=== PATIENT | male | born 1980 | race Asian ===

== ENCOUNTER 2020-07-08 21:01 | Emergency (ER) | payer OTHER ==
--- NOTE | 2020-07-08 22:03 | ED Physician Documentation ---
PD HPI LOWER EXT INJURY - Stated complaint Stated Complaint: L LEG PX - Chief complaint Chief Complaint: Trauma Ext - History obtained from History obtained from: Patient - History of Present Illness PD HPI LOW EXT INJURY LOCATION: Left, Upper leg Where injury occurred: Park Timing - details: Abrupt onset Pain level now: 3 Improved by: Rest Worsened by: Moving, Palpating Associated symptoms: Swelling. No: Numbness Recently seen: Not recently seen - Additional information Additional information: one week ago, patient was running to catch a pop fly during a baseball game when he had sudden left posterior thigh pain with popping sensation. 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 The pain on both occasions caused him to fall to the ground, but the pain was present before he fell (he did not sustain injury due to falling) Review of Systems Musculoskeletal: reports: Extremity pain, Extremity swelling, Pain with weight bearing Neurologic: denies: Focal weakness, Numbness PD PAST MEDICAL HISTORY - Past Medical History Past Medical History: No - Past Surgical History Past Surgical History: No - Present Medications Home Medications: Ambulatory Orders Medication Instructions Recorded Confirmed HYDROcod/ACETAM 5/325 [[place] 5/325] 1 - 2 tablet PO Q6H PRN #14 tablet 07/08/20 - Allergies Allergies/Adverse Reactions: Allergies Allergy/AdvReac Type Severity Reaction Status Date / Time No Known Drug Allergies Allergy Verified 07/08/20 21:08 - Social History Does the pt smoke?: Yes Smoking Status: Former smoker Does the pt drink ETOH?: Yes Does the pt have substance abuse?: No - Immunizations Immunizations are current?: Yes - POLST Patient has POLST: No PD ED PE NORMAL - Vitals Vital signs reviewed: Yes - General General: Alert and oriented X 3, No acute distress, Well developed/nourished - Extremities Extremities: Normal ROM s pain (full extension and flexion of left hip and left knee without reproduction of symptoms, and he has 5/5 flexion/extension strength of left knee), No calf tenderness / cord - Neuro Neuro: No motor deficit, No sensory deficit PD ED PE EXPANDED - Extremities Extremities: Tenderness (left posterior thigh tender to palpation mid/proximal thigh, with fullness but not firm. there is an isolated echymosis left posterior distal thigh which appears several days old (brown/yellow discoloration)) Results - Vitals Vitals: Vital Signs - 24 hr 07/08/20 07/08/20 21:04 23:00 Temperature 36.0 C L 36.5 C Heart Rate 126 H 90 Respiratory 16 16 Rate Blood Pressure 153/134 H 130/80 O2 Saturation 97 98 Oxygen O2 Source Room air PD MEDICAL DECISION MAKING - ED course Complexity details: considered differential, d/w patient ED course: H+P s/o muscular strain. His intact ROM and strength of the left hip and knee do not suggest tendon rupture. Emergent testing including imaging is not indicated at this time. prescription analgesia provided and recommended rest and return if worse, and follow up with PMD within 3-5 days for reevaluation Departure - Departure Disposition: 01 Home, Self Care Clinical Impression: Left hamstring muscle strain Qualifiers: Encounter type: initial encounter Qualified Code(s): S76.312A - Strain of muscle, fascia and tendon of the posterior muscle group at thigh level, left thigh, initial encounter Condition: Good Instructions: ED Crutch Walking, ED Strain Muscle Ext, ED Compartment Syndrome At Risk For Prescriptions: HYDROcod/ACETAM 5/325 [[place] 5/325] 1 - 2 tablet PO Q6H PRN #14 tablet PRN Reason: Pain Comments: Follow up with your primary care provider in 3-5 days Discharge Date/Time: 07/08/20 22:55
[2020-07-08] MEDS ORDERED: HYDROcod/ACET 5/325 Prepack 4 PO STA (22:26)
[2020-07-08 23:01] VITALS: BP 130/80
== END 2020-07-08 22:55 | disposition home or self-care (01) ==
LOC: ED 21:01
DX: S76.312A Strain of muscle, fascia and tendon of the posterior muscle group at thigh level, left thigh, initial encounter (principal); X50.1XXA Overexertion from prolonged static or awkward postures, initial encounter; Y93.89 Activity, other specified; Y92.320 Baseball field as the place of occurrence of the external cause; Z87.891 Personal history of nicotine dependence
CPT/HCPCS: 99283